=== PATIENT | female | born 1940 | race Caucasian/White ===

== ENCOUNTER → 2017-02-16 | Outpatient (CLI) | payer MEDICARE ==
--- NOTE | 2017-02-16 09:29 | FL ---
EXAMINATION TYPE: FL barium swallow DATE OF EXAM: 02/16/2017 CLINICAL HISTORY: Dysphasia, patient feels food getting stuck lower cervical spine at level of thyroi d. TECHNIQUE: A double contrast esophagram is performed utilizing air and barium. A total of 27 second s of fluoroscopic time was utilized during procedure. 37 spot images were saved during procedure COMPARISON: None FINDINGS: The esophagus shows normal motility and emptying into the stomach. No evidence of hiatal h ernia or stricture noted. No significant gastroesophageal reflux was seen during real time performanc e of this study. Incidental note is made of suspected small calcified nodules or granulomas in centra l aspect of both lungs. IMPRESSION: No significant abnormality is seen to account for patient's symptoms.
--- NOTE | 2017-02-18 07:42 | MM ---
Reason for exam: screening (asymptomatic). Last mammogram was performed 1 year ago. History: Patient is postmenopausal and is nulliparous. Family history of breast cancer in maternal aunt. Took estrogen for 10 years beginning at age 50. Took progesterone for 10 years beginning at age 50. Physical Findings: A clinical breast exam by your physician is recommended on an annual basis and results should be correlated with mammographic findings. MG 3D Screening Mammo W/Cad Bilateral CC and MLO view(s) were taken. Prior study comparison: February 03, 2016, bilateral MG 3d screening mammo w/cad. January 29, 2015, bilateral MG screening mammo w CAD. January 26, 2014, bilateral MG screening mammo w CAD. There are scattered fibroglandular densities. No significant changes when compared with prior studies. ASSESSMENT: Negative, BI-RAD 1 RECOMMENDATION: Routine screening mammogram of both breasts in 1 year.
== END | disposition home or self-care (01) ==
LOC: RADMAMWWP 08:20
PROVIDERS: ATTEND Family Medicine
DX: Z12.31 Encounter for screening mammogram for malignant neoplasm of breast (principal); R13.10 Dysphagia, unspecified
CPT/HCPCS: 74220; 77063; G0202

== ENCOUNTER → 2018-02-25 | Outpatient (CLI) | payer MEDICARE ==
--- NOTE | 2018-02-28 11:29 | MM ---
Reason for exam: screening (asymptomatic). Last mammogram was performed 1 year ago. History: Patient is postmenopausal and is nulliparous. Family history of breast cancer in maternal aunt. Took estrogen for 10 years beginning at age 50. Took progesterone for 10 years beginning at age 50. Physical Findings: A clinical breast exam by your physician is recommended on an annual basis and results should be correlated with mammographic findings. MG 3D Screening Mammo W/Cad Bilateral CC and MLO view(s) were taken. Prior study comparison: February 16, 2017, bilateral MG 3d screening mammo w/cad. February 03, 2016, bilateral MG 3d screening mammo w/cad. The breast tissue is heterogeneously dense. This may lower the sensitivity of mammography. There is no discrete abnormality. ASSESSMENT: Negative, BI-RAD 1 RECOMMENDATION: Routine screening mammogram of both breasts in 1 year.
== END ==
LOC: RADMAMWWP 07:33
PROVIDERS: ATTEND Family Medicine
DX: Z12.31 Encounter for screening mammogram for malignant neoplasm of breast (principal)
CPT/HCPCS: 77063; 77067

== ENCOUNTER → 2018-08-11 | Outpatient (CLI) | payer MEDICARE ==
[2018-08-11 10:54] LABS: Basophils # (A) 0.1 k/uL (0-0.2); Basophils % (A) 1 %; Eosinophils # (A) 0.3 k/uL (0-0.7); Eosinophils % (A) 3 %; HCT 45.4 % (34.0-46.0); HGB 14.4 gm/dL (11.4-16.0); Lymphocytes # (A) 1.7 k/uL (1.0-4.8); Lymphocytes % (A) 17 %; MCH 30.2 pg (25.0-35.0); MCHC 31.7 g/dL (31.0-37.0); MCV 95.1 fL (80.0-100.0); Mean Platelet Volume 7.1; Monocytes # (A) 0.9 k/uL (0-1.0); Monocytes % (A) 9 %; Neutrophils # (A) 6.7 k/uL (1.3-7.7); Neutrophils % (A) 68 %; Platelet Count 375 k/uL (150-450); RBC 4.77 m/uL (3.80-5.40); RDW 14.3 % (11.5-15.5); WBC 9.8 k/uL (3.8-10.6)
[2018-08-11 11:21] LABS: Amorphous Sediment,Urine Few /hpf; Appearance,Urine Cloudy (Clear); Bacteria,Urine Rare /hpf; Bilirubin,Urine Negative (Negative); Blood,Urine Negative (Negative); Color,Urine Yellow; Glucose,Urine (UA) Negative (Negative); Hyaline Casts,Urine 1 /lpf (0-2); Ketones,Urine Negative (Negative); Leukocyte Esterase,Urine Large (Negative); Mucus,Urine Moderate /hpf; Nitrite,Urine Negative (Negative); Protein,Urine Trace (Negative); RBC,Urine 1 /hpf (0-5); Specific Gravity,Urine 1.022 (1.001-1.035); Squamous Epithelial Cell,Urine 11 /hpf (0-4); Urobilinogen,Urine <2.0 mg/dL (<2.0); WBC,Urine 28 /hpf (0-5)
[2018-08-11 13:36] LABS: Erythrocyte Sedimentation Rate 26 mm/hr (0-20)
[2018-08-11 16:14] LABS: Thyroid Peroxidase Antibodies <28.0 U/mL (0.0-60.0)
[2018-08-11 16:18] LABS: Albumin 4.3 g/dL (3.80-4.90); Albumin/Globulin Ratio 1.59 (1.60-3.17); Anion Gap 5.2 mmol/L (4.00-12.00); C Reactive Protein 1.5 mg/dL (0.0-0.8); Calcium 9.6 mg/dL (8.7-10.3); Carbon Dioxide 28.8 mmol/L (21.6-31.8); Globulin 2.7 g/dL (1.6-3.3); Potassium 5.3 mmol/L (3.5-5.5); Total Bilirubin 0.5 mg/dL (0.3-1.2)
[2018-08-11 18:01] LABS: Protein, Total 6.8 g/dL (6.2-8.2)
[2018-08-12 11:09] LABS: Immunoglobulin M 94.6 mg/dL (40.0-280.0)
[2018-08-12 12:47] LABS: Albumin 3.58 g/dL (3.80-4.90); Gamma Globulin 1.16 g/dL (0.70-1.50)
== END | disposition home or self-care (01) ==
LOC: LABWHC1 09:55
PROVIDERS: ATTEND Allergy & Immunology
DX: L50.8 Other urticaria (principal)
CPT/HCPCS: 36415; 80053; 81001; 82784; 82785; 84165; 84443; 85025; 85652; 86140; 86160; 86162; 86334; 86376; 86800; 88184; 88185

== ENCOUNTER → 2018-09-02 | Outpatient (CLI) | payer MEDICARE ==
[2018-09-02 11:57] LABS: Appearance,Urine Clear (Clear); Bilirubin,Urine Negative (Negative); Blood,Urine Negative (Negative); Color,Urine Yellow; Glucose,Urine (UA) Negative (Negative); Ketones,Urine Negative (Negative); Leukocyte Esterase,Urine Moderate (Negative); Mucus,Urine Rare /hpf; Nitrite,Urine Negative (Negative); Protein,Urine Negative (Negative); Specific Gravity,Urine 1.018 (1.001-1.035); Squamous Epithelial Cell,Urine 1 /hpf (0-4); Urobilinogen,Urine <2.0 mg/dL (<2.0); WBC,Urine 14 /hpf (0-5)
[2018-09-02 19:43] LABS: Anti-DNA, DS unit <1.0 IU/mL; DNA Double-Stranded NEGATIVE (NEGATIVE); Gliadin AB IgA, Unit <0.2 U/mL
[2018-09-02 20:11] LABS: Albumin 4.4 g/dL (3.80-4.90); Albumin/Globulin Ratio 1.63 (1.60-3.17); Anion Gap 10.4 mmol/L (4.00-12.00); C Reactive Protein 0.7 mg/dL (0.0-0.8); Carbon Dioxide 27.6 mmol/L (21.6-31.8); Globulin 2.7 g/dL (1.6-3.3); Potassium 4.7 mmol/L (3.5-5.5); Total Bilirubin 0.6 mg/dL (0.3-1.2); Total Protein 7.1 g/dL (6.2-8.2)
[2018-09-02 20:23] LABS: Rheumatoid Factor 8 IU/mL (0-15)
[2018-09-02 20:26] LABS: Thyroid Peroxidase Antibodies 42.7 U/mL (0.0-60.0)
[2018-09-02 20:53] LABS: Hepatitis C IgG Antibody Non-Reactive (Non-Reactive)
[2018-09-05 13:35] LABS: Anti-Endomysial IgA Antibody <1:10 Titer (<1:10)
[2018-09-06 14:06] LABS: Alpha 1 Anti-Trypsin 124 mg/dL (90 - 200); Alpha-1-Antitrypsin Phenotype MS
== END | disposition home or self-care (01) ==
LOC: LABWHC1 09:41
PROVIDERS: ATTEND Allergy & Immunology
DX: D89.2 Hypergammaglobulinemia, unspecified (principal)
CPT/HCPCS: 36415; 80053; 81001; 82103; 82104; 82595; 82784; 82785; 83516; 83883; 84432; 84443; 85652; 86140; 86160; 86200; 86225; 86255; 86376; 86431; 86803; 87340; 88184; 88185

== ENCOUNTER → 2018-09-21 | Outpatient (CLI) | payer MEDICARE ==
--- NOTE | 2018-09-21 10:42 | MR ---
EXAMINATION TYPE: MR brain and iac wo/w con DATE OF EXAM: 09/21/2018 COMPARISON: None HISTORY: Hearing loss / Acoustic nerve disorder CONTRAST: Performed utilizing 7.5 mL intravenous Gadavist gadolinium contrast. TECHNIQUE: Multiplanar, multiecho imaging on a 3.0 Chasidy magnet is performed through the brain. Atte ntion is paid to the internal auditory canals with thin section imaging. Postcontrast imaging is per formed through the internal auditory canals. FINDINGS:Craniovertebral junction is normal. The pituitary is normal. Diffusion-weighted imaging is performed. No suspicious hyperintensity is present to suggest an acute intracranial infarct or acute ischemic area. Signal within the brain has mild areas of periventricular white matter hyperintensity on T2-weighted sequences likely related to microvascular ischemic change. Few scattered punctate areas are scattered through the bilateral centrum semiovale. Some perivascular atrophy may be present. Thin section imaging is performed through the internal auditory canals and cerebellar pontine angles. No cerebellar pontine angle masses are evident. The internal auditory canals appear normal without expansion or erosion. Postcontrast imaging was performed. No suspicious enhancement is evident within the internal audito ry canals or the included portions of the brain. IMPRESSIONS: 1. Normal internal auditory canals. No suspicious masses or expansion is evident. 2. Changes compatible with microvascular ischemic change through the brain with some age related atro phy.
== END ==
LOC: RADMRIMAIN 09:14
PROVIDERS: ATTEND Otolaryngology
DX: H93.3X9 Disorders of unspecified acoustic nerve (principal); H91.90 Unspecified hearing loss, unspecified ear; R42 Dizziness and giddiness
CPT/HCPCS: 70553; A9585

== ENCOUNTER → 2019-03-20 | Outpatient (CLI) | payer MEDICARE ==
--- NOTE | 2019-03-20 10:21 | MM ---
Reason for exam: screening (asymptomatic). Last mammogram was performed 1 year and 1 month ago. History: Patient is postmenopausal and is nulliparous. Family history of breast cancer in maternal aunt. Took estrogen for 10 years beginning at age 50. Took progesterone for 10 years beginning at age 50. Physical Findings: A clinical breast exam by your physician is recommended on an annual basis and results should be correlated with mammographic findings. MG 3D Screening Mammo W/Cad Bilateral CC and MLO view(s) were taken. Prior study comparison: February 25, 2018, bilateral MG 3d screening mammo w/cad. February 16, 2017, bilateral MG 3d screening mammo w/cad. The breast tissue is heterogeneously dense. This may lower the sensitivity of mammography. No suspicious abnormality. No significant changes when compared with prior studies. ASSESSMENT: Negative, BI-RAD 1 RECOMMENDATION: Routine screening mammogram of both breasts in 1 year.
== END | disposition home or self-care (01) ==
LOC: RADMAMWWP 08:04
PROVIDERS: ATTEND Family Medicine
DX: Z12.31 Encounter for screening mammogram for malignant neoplasm of breast (principal)
CPT/HCPCS: 77063; 77067

== ENCOUNTER → 2019-12-09 | Outpatient (CLI) | payer MEDICARE ==
--- NOTE | 2019-12-09 09:42 | CT ---
EXAMINATION TYPE: CT brain wo con DATE OF EXAM: 12/09/2019 COMPARISON: 09/21/2018 HISTORY: loss of balance, repeated falls, visual disturbance, headaches CT DLP: 883 mGycm Automated exposure control for dose reduction was used. FINDINGS: Moderate generalized degenerative changes seen in the appearance of faint periventricular low attenua tion typical remote microvascular ischemia. No midline shift or mass effect. Craniocervical junction is maintained. Partially empty sella turcica noted. Calvarium intact. No significant changes of sinusitis. Orbits symmetric. IMPRESSION: A DEGENERATIVE AND NONSPECIFIC WHITE MATTER CHANGES MOST TYPICAL OF REMOTE WHITE MATTER ISCHEMIA.
== END | disposition home or self-care (01) ==
LOC: RADCTMAIN 08:50
PROVIDERS: ATTEND Family Medicine
DX: I67.82 Cerebral ischemia (principal); R90.82 White matter disease, unspecified
CPT/HCPCS: 70450

== ENCOUNTER → 2019-12-12 | Outpatient (CLI) | payer MEDICARE ==
[2019-12-13 13:36] LABS: Cow's Milk IgE Class CLASS 0/1; Egg White IgE 0.71 kU/L (<0.10); Peanut IgE 0.23 kU/L (<0.10); Potato IgE <0.10 kU/L (<0.10); Potato IgE Class CLASS 0; Soybean IgE <0.10 kU/L (<0.10)
== END ==
LOC: LABWHC1 09:39
PROVIDERS: ATTEND Otolaryngology
DX: J30.89 Other allergic rhinitis (principal)
CPT/HCPCS: 36415; 86003

== ENCOUNTER 2020-02-25 20:32 | Observation (INO) | payer MEDICARE ==
[2020-02-25 21:36] LABS: Basophils # (A) 0.1 k/uL (0-0.2); Basophils % (A) 1 %; Eosinophils # (A) 0.5 k/uL (0-0.7); Eosinophils % (A) 4 %; HCT 39.8 % (34.0-46.0); HGB 13.2 gm/dL (11.4-16.0); Lymphocytes # (A) 2.4 k/uL (1.0-4.8); Lymphocytes % (A) 22 %; MCH 31.8 pg (25.0-35.0); MCHC 33.2 g/dL (31.0-37.0); MCV 95.7 fL (80.0-100.0); Mean Platelet Volume 7.6; Monocytes # (A) 0.7 k/uL (0-1.0); Monocytes % (A) 6 %; Neutrophils # (A) 7.3 k/uL (1.3-7.7); Neutrophils % (A) 66 %; Platelet Count 281 k/uL (150-450); RBC 4.16 m/uL (3.80-5.40); RDW 12.9 % (11.5-15.5); WBC 11.2 k/uL (3.8-10.6)
[2020-02-25 21:45] LABS: INR 0.9 (<1.2); Partial Thromboplastin Time 23.8 sec (22.0-30.0); Prothrombin Time 9.5 sec (9.0-12.0)
--- NOTE | 2020-02-25 21:48 | CT ---
EXAMINATION TYPE: CT brain tree wo con DATE OF EXAM: 02/25/2020 COMPARISON: CT brain 12/09/2019 HISTORY: fall Headache. Neck pain CT DLP: 1387.3 mGycm Automated exposure control for dose reduction was used. There is cerebral atrophy. There is no mass effect nor midline shift. There is no sign of intracrania l hemorrhage. There is some mild hypodensity around the frontal horns of the lateral ventricles. The calvarium is intact. There is no evidence of cerebral edema. Cervical vertebra have normal alignment. There is some narrowing at C4-5 and C5-6 disc spaces with sp urring of the endplates. The posterior elements are intact. There is mild hypertrophic changes in the facet joints. The skull base is intact. There is normal aeration of the mastoid sinuses. Occipital b one is intact. IMPRESSION: Cerebral atrophy. Mild chronic small vessel ischemia. No change. Mild spondylotic changes in the cervical spine. No fracture seen.
[2020-02-25 21:50] LABS: Albumin 3.9 g/dL (3.5-5.0); Calcium 9.9 mg/dL (8.4-10.2); Potassium 5.2 mmol/L (3.5-5.1); Total Bilirubin 0.3 mg/dL (0.2-1.3); Total Protein 6.9 g/dL (6.3-8.2)
--- NOTE | 2020-02-25 21:52 | XR ---
EXAMINATION TYPE: XR chest 2V DATE OF EXAM: 02/25/2020 COMPARISON: NONE HISTORY: Syncope TECHNIQUE: FINDINGS: Heart and mediastinum are normal. Lungs are clear. Diaphragm is normal. Bony thorax appears intact. IMPRESSION: Normal chest.
[2020-02-25] MEDS ORDERED: NALOXONE 0.4 MG/ML 1 ML VIAL IV PRN (21:54)
--- NOTE | 2020-02-25 21:56 | ED ---
Fall HPI - General Chief Complaint: Fall Stated Complaint: Fall, Hit Head Time Seen by Provider: 02/25/20 20:42 Source: patient Mode of arrival: ambulatory - History of Present Illness Initial Comments: 79yo females presenting for head injury after possible fall/syncopal episode. She states just prior to arrival she was stretching in her bed when her heard a thud. He went to the bedroom and she was in the floor patient had hit her head. Patient had repetitive questioning she was alert and conscious at the time. Patient states she believes she did lose consciousness and believes she possibly had a syncopal episode she does not recollect the events prior to falli ng. Patient denied any abnormal symptoms earlier in the day she states her blood pressure was lower than normal at 111/40 and she had started a new blood pressure medication. Patient denies any chest pain shortness of breath nausea vomiting leg swelling. Deep inspiration history DVT pulmonary embolism. Patient states she has a slight headache otherwise no symptoms at this time denies any neck pain low back pain abdominal pain. Patient denies any vomiting diarrhea. Patient denies any loss of sensation weakness of the lower extremities. Denies visual changes. Patient appears well and nontoxic in no acute distress at this time - Related Data Home Medications Medication Instructions Recorded Confirmed Simvastatin 20 mg PO HS 09/03/14 02/25/20 Acetaminophen/Diphenhydramine 1 tab PO HS PRN 02/25/20 02/25/20 [Tylenol PM 500-25mg] Ascorbic Acid [Vitamin C] 1,000 mg PO DAILY 02/25/20 02/25/20 Aspirin EC [Ecotrin Low Dose] 81 mg PO DAILY 02/25/20 02/25/20 Calcium Carbonate [Calcium] 600 mg PO DAILY 02/25/20 02/25/20 Dicyclomine [Bentyl] 10 mg PO DAILY 02/25/20 02/25/20 EPINEPHrine (Auto Inject) [Epipen] 0.3 mg IM ONCE PRN 02/25/20 02/25/20 Fish Oil(Unknown Dose) 1 cap PO DAILY 02/25/20 02/25/20 Magnesium Oxide [Mag-Ox] 400 mg PO HS 02/25/20 02/25/20 Penicillin V Potassium [Pen Vee K] 500 mg PO Q6H 02/25/20 02/25/20 Vitamin D3(Unknown Dose) 1 tab PO DAILY 02/25/20 02/25/20 Vitamin E 1,000 unit PO DAILY 02/25/20 02/25/20 l Acidophil/B Lactis/B Longum 460 mg PO DAILY 02/25/20 02/25/20 [Florajen3 Capsule] lisinopriL [Zestril] 5 mg PO HS 02/25/20 02/25/20 Allergies Allergy/AdvReac Type Severity Reaction Status Date / Time cheese Allergy Allergy Verified 02/25/20 22:20 Testing chocolate flavor Allergy Allergy Verified 02/25/20 22:20 Testing egg Allergy Allergy Verified 02/25/20 22:20 Testing milk Allergy Allergy Verified 02/25/20 22:20 Testing Milk Containing Products Allergy Allergy Verified 02/25/20 22:20 [Dairy] Testing tomato Allergy Allergy Verified 02/25/20 22:20 Testing NSAIDS (Non-Steroidal AdvReac can't have Verified 02/25/20 22:20 Anti-Inflamma r/t kidney disease Review of Systems ROS Statement: Those systems with pertinent positive or pertinent negative responses have been documented in the HPI. ROS Other: All systems not noted in ROS Statement are negative. Past Medical History Past Medical History: GERD/Reflux, Hyperlipidemia Additional Past Medical History / Comment(s): HEMMORHOIDS, CKD stage unknown stage. History of Any Multi-Drug Resistant Organisms: None Reported Past Surgical History: Cholecystectomy, Heart Catheterization, Hernia Repair Additional Past Surgical History / Comment(s): right hand cyst removal, Past Anesthesia/Blood Transfusion Reactions: No Reported Reaction Past Psychological History: No Psychological Hx Reported Smoking Status: Never smoker Past Alcohol Use History: None Reported Past Drug Use History: None Reported - Past Family History Sister(s) Family Medical History: Cancer Additional Family Medical History / Comment(s): COLON General Exam - General Exam Comments Initial Comments: General: The patient is awake and alert, in no distress Eye: +3 mm pupils are equal, round and reactive to light, extra-ocular movements are intact. No nystagmus. There is normal conjunctiva bilaterally. No signs of icterus. Ears, nose, mouth and throat: There are moist mucous membranes and no oral lesions. No raccoon or Parmar sign Neck: The neck is supple, there is no tenderness or JVD. No midline cerival pain. Cardiovascular: There is a regular rate and rhythm. No murmur, rub or gallop is appreciated. Respiratory: Lungs are clear to auscultation, respirations are non-labored, breath sounds are equal. No wheezes, stridor, rales, or rhonchi. Gastrointestinal: Soft, non-distended, non-tender abdomen without masses or organomegaly noted. There is no rebound or guarding present. Musculoskeletal: Normal ROM, no tenderness. Strength 5/5. Sensation intact. Radial pulses equal bilaterally 2+. Neurological: A&O x 3. CN II-XII intact, There are no obvious motor or sensory deficits. Coordination appears grossly intact. Speech is normal. No pronator d rift Skin: Skin is warm and dry and no rashes or lesions are noted. No LE edema. Psychiatric: Cooperative, appropriate mood & affect, normal judgment. Limitations: no limitations Course Vital Signs 02/25/20 02/25/20 02/25/20 20:34 21:25 21:45 Temperature 98 F 98.0 F Pulse Rate 54 L 63 Respiratory 18 17 Rate Blood Pressure 188/74 159/73 Blood Pressure 176/72 [Left Arm Sitting] Blood Pressure 147/70 [Left Arm Standing] Blood Pressure 182/71 [Left Arm Supine] O2 Sat by Pulse 97 97 Oximetry Medical Decision Making - Medical Decision Making Pt laboratory stable. EKG no arrhythmias or ischemic findings troponin negative. CT scan of the brain and C-spine no acute findings. Patient vital signs stable she appears well nontoxic no focal neurological deficits at this time. No repetitive questioning. I feel patient most likely has concussion. She is a greeable to further evaluation and admission secondary to possible syncopal episode. Discussed the case by attending provider who is agreeable to care plan and admission. he spoke with accepting admitting providers [email or web address] Saavedra. - Lab Data Result diagrams: 02/25/20 21:25 02/25/20 21:25 Lab Results 02/25/20 02/25/20 02/25/20 Range/Units 21:25 21:25 21:25 WBC 11.2 H (3.8-10.6) k/uL RBC 4.16 (3.80-5.40) m/uL Hgb 13.2 (11.4-16.0) gm/dL Hct 39.8 (34.0-46.0) % MCV 95.7 (80.0-100.0) fL MCH 31.8 (25.0-35.0) pg MCHC 33.2 (31.0-37.0) g/dL RDW 12.9 (11.5-15.5) % Plt Count 281 (150-450) k/uL Neutrophils % 66 % Lymphocytes % 22 % Monocytes % 6 % Eosinophils % 4 % Basophils % 1 % Neutrophils # 7.3 (1.3-7.7) k/uL Lymphocytes # 2.4 (1.0-4.8) k/uL Monocytes # 0.7 (0-1.0) k/uL Eosinophils # 0.5 (0-0.7) k/uL Basophils # 0.1 (0-0.2) k/uL PT 9.5 (9.0-12.0) sec INR 0.9 (<1.2) APTT 23.8 (22.0-30.0) sec Sodium 139 (137-145) mmol/L Potassium 5.2 H (3.5-5.1) mmol/L Chloride 106 (98-107) mmol/L Carbon Dioxide 29 (22-30) mmol/L Anion Gap 4 mmol/L BUN 17 (7-17) mg/dL Creatinine 1.11 H (0.52-1.04) mg/dL Est GFR (CKD-EPI)AfAm 55 (>60 ml/min/1.73 sqM) Est GFR (CKD-EPI)NonAf 48 (>60 ml/min/1.73 sqM) Glucose 105 H (74-99) mg/dL Calcium 9.9 (8.4-10.2) mg/dL Total Bilirubin 0.3 (0.2-1.3) mg/dL AST 37 H (14-36) U/L ALT 22 (4-34) U/L Alkaline Phosphatase 69 (38-126) U/L Troponin I (0.000-0.034) ng/mL Total Protein 6.9 (6.3-8.2) g/dL Albumin 3.9 (3.5-5.0) g/dL 02/25/20 Range/Units 21:25 WBC (3.8-10.6) k/uL RBC (3.80-5.40) m/uL Hgb (11.4-16.0) gm/dL Hct (34.0-46.0) % MCV (80.0-100.0) fL MCH (25.0-35.0) pg MCHC (31.0-37.0) g/dL RDW (11.5-15.5) % Plt Count (150-450) k/uL Neutrophils % % Lymphocytes % % Monocytes % % Eosinophils % % Basophils % % Neutrophils # (1.3-7.7) k/uL Lymphocytes # (1.0-4.8) k/uL Monocytes # (0-1.0) k/uL Eosinophils # (0-0.7) k/uL Basophils # (0-0.2) k/uL PT (9.0-12.0) sec INR (<1.2) APTT (22.0-30.0) sec Sodium (137-145) mmol/L Potassium (3.5-5.1) mmol/L Chloride (98-107) mmol/L Carbon Dioxide (22-30) mmol/L Anion Gap mmol/L BUN (7-17) mg/dL Creatinine (0.52-1.04) mg/dL Est GFR (CKD-EPI)AfAm (>60 ml/min/1.73 sqM) Est GFR (CKD-EPI)NonAf (>60 ml/min/1.73 sqM) Glucose (74-99) mg/dL Calcium (8.4-10.2) mg/dL Total Bilirubin (0.2-1.3) mg/dL AST (14-36) U/L ALT (4-34) U/L Alkaline Phosphatase (38-126) U/L Troponin I <0.012 (0.000-0.034) ng/mL Total Protein (6.3-8.2) g/dL Albumin (3.5-5.0) g/dL Disposition Clinical Impression: Fall, Head injury, Syncope, Orthostatic hypotension Disposition: ADMITTED IP TO THIS [facility] Condition: Stable Is patient prescribed a controlled substance at d/c from ED?: No Time of Disposition: 21:56 Decision to Admit Reason: Admit from EC Decision Date: 02/25/20 Decision Time: 21:56
[2020-02-25] MEDS ORDERED: ACETAMINOPHEN TAB 500 MG TAB PO PRN (23:03)
[2020-02-25] MEDS ORDERED: diphenhydrAMINE 25 MG CAP PO PRN (23:11)
[2020-02-25] MEDS: lisinopriL 5 MG TAB PO SCH (23:46)
[2020-02-25] MEDS: PENICILLIN V POTASSIUM 250 MG TAB PO SCH (23:47)
[2020-02-25] MEDS: ATORVASTATIN 10 MG TAB PO SCH (23:52)
[2020-02-25] MEDS: MAGNESIUM OXIDE 400 MG TAB PO SCH (23:52)
[2020-02-26] MEDS: PENICILLIN V POTASSIUM 250 MG TAB PO SCH ×3 (04:31→18:10)
[2020-02-26] MEDS ORDERED: VITAMIN E 1000 UNIT PO SCH (09:00)
[2020-02-26] MEDS ORDERED: NON FORMULARY DRUG (Vitamin D3(Unknown Dose) 1 TAB) PO SCH (09:00)
[2020-02-26] MEDS ORDERED: B LACTIS PO SCH (09:00)
[2020-02-26] MEDS ORDERED: FISH OIL PO SCH (09:00)
[2020-02-26] MEDS ORDERED: ACIDOPHIL PO SCH (09:00)
[2020-02-26] MEDS ORDERED: B LONGUM PO SCH (09:00)
[2020-02-26] MEDS: ASCORBIC ACID 500 MG TAB PO SCH (09:10)
[2020-02-26] MEDS: DICYCLOMINE 10 MG CAP PO SCH (09:10)
[2020-02-26] MEDS: ASPIRIN 81 MG PO SCH (09:10)
[2020-02-26] MEDS: CALCIUM CARBONATE 500 MG CHEWABLE PO SCH (09:10)
--- NOTE | 2020-02-26 10:09 | P.HPIM ---
History of Present Illness This is a pleasant 79 years old female with past medical history of hyperlipidemia, GERD, chronic kidney disease, chronic vertigo, sleep apnea. She is a patient of Dr. Loya. She follows up with Dr. 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 Parker for her ALLERGIES Presents because of syncope. She follows up with neurologist Dr. Peter however she has not seen him for a long time. Patient could not remember what happened and information was taken with the help of at bedside, patient developed a per patient and she was a ringlike exercises when she passed out, came to the room and she was already a week, she could not remember what happened, as per patient remains confused only for 10-20 seconds. Patient bumped the back of her head however she denies any weakness or numbness. No chest pain or dyspnea. No diarrhea or nausea vomiting. No dysuria or urinary symptoms Patient states that she has chronic vertigo on meclizine, she's been treated mainly by Dr. Loya, she saw Dr. Peter Long time ago. However she denies vertigo yesterday when she passed out. She denies smoking, alcohol or illicit drugs. Vitas looks stable however her orthostasis status was negative with a no drop of SBP above understanding, actually it went up to 132. She has mild leukocytosis of 11.2 and mild hyperkalemia at 5.2, creatinine is 1.1 which is close to her baseline. Troponin 1 is negative with less than 0.012. EKG showing sinus bradycardia with PAC at 59 bmp. QTC is 425. Chest x-ray: Normal chest. CT of the head and cervical spine: No acute process by radiologist Review of Systems CONSTITUTIONAL: No fever, no malaise, no fatigue. HEENT: No recent visual problems or hearing problems. Denied any sore throat. CARDIOVASCULAR: No orthopnea, PND, no palpitations, no syncope. PULMONARY: No shortness of breath, no cough, no hemoptysis. GASTROINTESTINAL: No diarrhea, no nausea, no vomiting, no abdominal pain. Normoactive bowel sounds. NEUROLOGICAL: No headaches, no weakness, no numbness. HEMATOLOGICAL: Denies any bleeding or petechiae. GENITOURINARY: Denies any burning micturition, frequency, or urgency. MUSCULOSKELETAL/RHEUMATOLOGICAL: Denies any joint pain, swelling, or any muscle pain. ENDOCRINE: Denies any polyuria or polydipsia. Past Medical History Past Medical History: GERD/Reflux, Hyperlipidemia Additional Past Medical History / Comment(s): HEMMORHOIDS, CKD stage unknown stage. History of Any Multi-Drug Resistant Organisms: None Reported Past Surgical History: Cholecystectomy, Heart Catheterization, Hernia Repair Additional Past Surgical History / Comment(s): right hand cyst removal, Past Anesthesia/Blood Transfusion Reactions: No Reported Reaction Past Psychological History: No Psychological Hx Reported Smoking Status: Never smoker Past Alcohol Use History: None Reported Past Drug Use History: None Reported - Past Family History Sister(s) Family Medical History: Cancer Additional Family Medical History / Comment(s): COLON Medications and Allergies Home Medications Medication Instructions Recorded Confirmed Type Simvastatin 20 mg PO HS 09/03/14 02/25/20 History Acetaminophen/Diphenhydramine 1 tab PO HS PRN 02/25/20 02/25/20 History [Tylenol PM 500-25mg] Ascorbic Acid [Vitamin C] 1,000 mg PO DAILY 02/25/20 02/25/20 History Aspirin EC [Ecotrin Low Dose] 81 mg PO DAILY 02/25/20 02/25/20 History Calcium Carbonate [Calcium] 600 mg PO DAILY 02/25/20 02/25/20 History Dicyclomine [Bentyl] 10 mg PO DAILY 02/25/20 02/25/20 History EPINEPHrine (Auto Inject) [Epipen] 0.3 mg IM ONCE PRN 02/25/20 02/25/20 History Fish Oil(Unknown Dose) 1 cap PO DAILY 02/25/20 02/25/20 History Magnesium Oxide [Mag-Ox] 400 mg PO HS 02/25/20 02/25/20 History Penicillin V Potassium [Pen Vee K] 500 mg PO Q6H 02/25/20 02/25/20 History Vitamin D3(Unknown Dose) 1 tab PO DAILY 02/25/20 02/25/20 History Vitamin E 1,000 unit PO DAILY 02/25/20 02/25/20 History l Acidophil/B Lactis/B Longum 460 mg PO DAILY 02/25/20 02/25/20 History [Florajen3 Capsule] lisinopriL [Zestril] 5 mg PO HS 02/25/20 02/25/20 History Allergies Allergy/AdvReac Type Severity Reaction Status Date / Time cheese Allergy Allergy Verified 02/25/20 22:20 Testing chocolate flavor Allergy Allergy Verified 02/25/20 22:20 Testing egg Allergy Allergy Verified 02/25/20 22:20 Testing milk Allergy Allergy Verified 02/25/20 22:20 Testing Milk Containing Products Allergy Allergy Verified 02/25/20 22:20 [Dairy] Testing tomato Allergy Allergy Verified 02/25/20 22:20 Testing NSAIDS (Non-Steroidal AdvReac can't have Verified 02/25/20 22:20 Anti-Inflamma r/t kidney disease Physical Exam Vitals: Vital Signs Temp Pulse Pulse Pulse Pulse Pulse Resp 02/26/20 08:57 97.9 F 66 62 61 18 02/26/20 02:25 97.7 F 65 02/25/20 22:38 98.0 F 62 18 02/25/20 22:37 98.0 F 59 L 02/25/20 21:45 98.0 F 63 17 02/25/20 21:25 02/25/20 20:34 98 F 54 L 18 BP BP BP BP Pulse Ox 02/26/20 08:57 118/60 132/73 107/57 02/26/20 02:25 154/76 99 02/25/20 22:38 199/78 97 02/25/20 22:37 178/81 100 02/25/20 21:45 159/73 97 02/25/20 21:25 176/72 147/70 182/71 02/25/20 20:34 188/74 97 Intake and Output 02/25/20 02/26/20 02/26/20 22:59 06:59 14:59 Intake Total 0 Output Total 825 Balance 0 -825 Intake: Oral 0 Output: Urine 825 Other: Voiding Method Toilet # Voids 2 Weight 74.843 kg GENERAL: The patient is alert and oriented x3, not in any acute distress. Well developed, well nourished. HEENT: Pupils are round and equally reacting to light. EOMI. No scleral icterus. No conjunctival pallor. Normocephalic, atraumatic. No pharyngeal erythema. No thyromegaly. CARDIOVASCULAR: S1 and S2 present. No murmurs, rubs, or gallops. PULMONARY: Chest is clear to auscultation, no wheezing or crackles. ABDOMEN: Soft, nontender, nondistended, normoactive bowel sounds. No palpable organomegaly. MUSCULOSKELETAL: No joint swelling or deformity. EXTREMITIES: No cyanosis, clubbing, or pedal edema. NEUROLOGICAL: Gross neurological examination did not reveal any focal deficits. SKIN: No rashes. No petechiae Results CBC & Chem 7: 02/25/20 21:25 02/25/20 21:25 Labs: Abnormal Lab Results - Last 24 Hours (Table) 02/25/20 02/25/20 Range/Units 21:25 21:25 WBC 11.2 H (3.8-10.6) k/uL Potassium 5.2 H (3.5-5.1) mmol/L Creatinine 1.11 H (0.52-1.04) mg/dL Glucose 105 H (74-99) mg/dL AST 37 H (14-36) U/L Thrombosis Risk Factor Assmnt - Choose All That Apply Each Risk Factor Represents 3 Points: Age 75 years or older Thrombosis Risk Factor Assessment Total Risk Factor Score: 3 Thrombosis Risk Factor Assessment Level: Moderate Risk Assessment and Plan Assessment: Syncope Head trauma secondary to above chronic vertigo Chronic kidney disease, stage III GERD Hyperlipidemia Plan: This is a pleasant 79 years old female who presents with syncope. We'll check TSH and cardiology consult. Check urine analysis. Also consult neurology service. We'll do neuro check for 24 hours Labs and medication were reviewed.. Continue same treatment. Continue with symptomatic treatment. Resume home medication. Monitor lytes and vitals. DVT and GI prophylaxis. Further recommendations depends on the clinical course of the patient DVT prophylaxis: Subcutaneous heparin GI Prophylaxis: Pepcid PT/OT: Pending Prognosis is guarded
--- NOTE | 2020-02-26 15:00 | CONS ---
CONSULTATION Mrs. Harmon is a 79-year-old female with known history of hypertension who has been followed by Dr. Chowdhury on a regular basis, who presented with a syncopal episode. She was doing exercise at home on her back and got up to switch to do her exercise on her belly. When she got up, she fell down and passed out for a very brief period of time for a few seconds according to her. She had no tonic-clonic activity, no loss of bladder control. She had no chest discomfort, palpitation, or dyspnea. She was alert but confused afterward but was able to move all her extremities and had no speech disturbance. She has prior history of orthostatic hypotension. She underwent a Holter monitor recently, revealed episodes of atrial tachycardia but no evidence of Eric tachycardia. She has a history of hyperlipidemia and hypertension. She is nondiabetic. She has underwent cardiac catheterization in 2013 and has no significant obstructive disease. She is not very active physically but has no significant change in her breathing. No exertional chest pain. No malignant arrhythmia. No PND, orthopnea, or peripheral edema. Her coronary risk factors are remarkable for hypertension and hyperlipidemia. She is nondiabetic, nonsmoker. MEDICATIONS: Include Zestril 5 mg daily, simvastatin 20 mg daily, aspirin 81 mg daily, calcium carbonate, fish oil, magnesium. REVIEW OF SYSTEMS: RESPIRATORY SYSTEM: She has no documented history of asthma, emphysema or bronchitis. GI SYSTEM: No recent GI bleeding, no peptic ulcer disease. SYSTEM: No dysuria, hematuria. NERVOUS SYSTEM: No history of stroke or seizure. PHYSICAL EXAMINATION: On presentation, her blood pressure was in the 180s. Subsequently, her blood pressure now supine is 107/57, standing 132/73. Heart rate in the 60s. HEAD: Normocephalic. EYES: Sclerae nonicteric. NECK: Good upstroke, no bruit, no jugular venous distention. LUNGS: Clear to auscultation. HEART: Regular rate and rhythm, S1, S2. No S3 with systolic murmur heard at the base, ejection type, no diastolic murmur,. no rub. ABDOMEN: Soft, nontender, positive bowel sounds, no organomegaly. EXTREMITIES: No edema, intact distal pulses. LAB DATA: Revealed BUN and creatinine of 17 and 1.1, potassium 5.2, hemoglobin 13.2. Troponin less than 0.012. TSH of 2.79. CT scan of the head shows no acute bleeding. The EKG reveals sinus mechanism with a rate of 59 with single PACs and nonspecific ST-T wave changes. Chest x-ray shows no evidence of infiltrate. IMPRESSION: 1. Syncopal episode, most likely orthostatic hypotension. There is no clear evidence to suggest malignant arrhythmia. Patient had orthostatic hypotension in the ER, her symptoms may have been aggravated by the fact that she was exercising. 2. History of hypertension. 3. History of hyperlipidemia. RECOMMENDATION: From the cardiac standpoint, I will obtain echocardiogram with Doppler. I do not believe we are dealing with malignant arrhythmia. She will continue present therapy, increase her level of activity, follow her on the telemetry. If she has no further evidence of symptoms, then I would expect she should be able to be discharged home tomorrow and depending on her progress, further recommendation will be made. Thank you for this consult. Will follow with you. JOSEPH / TONIE: [id number] /
--- NOTE | 2020-02-26 16:10 | P.CNNES ---
History of Present Illness Consult date: 02/26/20 Requesting physician: Ke E Charisma Reason for Consult: Syncope, history of vertigo History of Present Illness: Patient is a 79-year-old female came to the hospital yesterday at 8:30 PM for head injury after possible fall/syncopal episode. Patient states that she was laying on her back, feeling tired. She decided to do her leg exercises for which she has to lay on her stomach. She sat up on the edge of the bed, got up to turn around to lay on her stomach but was not able to do, and without any warning, while standing up, she fell on the side of the bed. Patient did pass out for short while. Her heard a loud crash and went in, saw she was laying on the floor. She was alert and conscious at that time. Patient believes she possibly had a syncopal spell as she does not recollect the events prior to falling. She was awake. She knew who she is, and who he was, and her birthday. However she couldn't recognize her own room, asking where she was. She was talking slow. She has been slurring for last several weeks. Patient hit her head. Her blood pressure was 111/40 and she had started a new blood pressure medication. Vital signs on arrival was blood pressure 188/74, pulse rate 54 and temperature 90.8. Patient's orthostatics was supine blood pressure 182/71, sitting 176/72 and standing up 147/70. Computed tomography scan of head from 02/25/2020 showed cerebral atrophy, mild chronic small vessel ischemia. Mild spondylotic changes in the cervical spine. No fracture. On my review, external auditory canals are clear. Visualized paranasal sinuses are clear. Chest x-ray normal, EKG shows sinus bradycardia with PACs. Patient had an MRI of the brain on 09/21/2018 performed for hearing loss/acoustic nerve disorder, which was normal internal auditory canals. No suspicious masses or extension is evident. Changes compatible with microvascular ischemic change with some age-related atrophy. Blood test shows WBC 11.2 hemoglobin 13.2 and platelets 21. PT/PTT normal. Potassium 5.0 normal sodium. Normal renal functions. Hepatic panel normal. Patient repeat orthostatics today was supine blood pressure 132/73, with pulse of 61. On sitting blood pressure 118/60 and pulse 66. On standing up, blood pressure 107/57, pulse 62. Patient tells me that she has very long-standing history of syncopal spells. Even when she was a teenager, age 14, she was very sensitive to being hungry, or hypoglycemia. Whenever she would, she would feel passing out. Patient remembers that in her teenage years, she has to have an orange juice at 10 AM and a small snack at recess otherwise she would feel lightheaded, dizzy and if she gets up, she would pass out. This has continued all her life, although lately has not been as symptomatic. Patient also has history of vertigo, also has history of balance issues for which she has fell due to losing balance several times in the last few years. Patient denies diabetes, has hypertension. Patient used to be on losartan, but was recently changed to lisinopril. Patient has problems with balance, cannot walk straight line for last couple years. Review of Systems As mentioned in HPI in detail. All other review of systems unremarkable. Denies any loss of vision, double vision, facial droop. She did have some slurring going on for a few weeks. Denies any chest pain shortness of breath wheezing or cough. Denies abdominal pain nausea vomiting or diarrhea. Past Medical History Past Medical History: GERD/Reflux, Hyperlipidemia Additional Past Medical History / Comment(s): HEMMORHOIDS, CKD stage unknown stage. History of Any Multi-Drug Resistant Organisms: None Reported Past Surgical History: Cholecystectomy, Heart Catheterization, Hernia Repair Additional Past Surgical History / Comment(s): right hand cyst removal, Past Anesthesia/Blood Transfusion Reactions: No Reported Reaction Past Psychological History: No Psychological Hx Reported Smoking Status: Never smoker Past Alcohol Use History: None Reported Past Drug Use History: None Reported - Past Family History Sister(s) Family Medical History: Cancer Additional Family Medical History / Comment(s): COLON Medications and Allergies Home Medications Medication Instructions Recorded Confirmed Type Simvastatin 20 mg PO HS 09/03/14 02/25/20 History Acetaminophen/Diphenhydramine 1 tab PO HS PRN 02/25/20 02/25/20 History [Tylenol PM 500-25mg] Ascorbic Acid [Vitamin C] 1,000 mg PO DAILY 02/25/20 02/25/20 History Aspirin EC [Ecotrin Low Dose] 81 mg PO DAILY 02/25/20 02/25/20 History Calcium Carbonate [Calcium] 600 mg PO DAILY 02/25/20 02/25/20 History Dicyclomine [Bentyl] 10 mg PO DAILY 02/25/20 02/25/20 History EPINEPHrine (Auto Inject) [Epipen] 0.3 mg IM ONCE PRN 02/25/20 02/25/20 History Fish Oil(Unknown Dose) 1 cap PO DAILY 02/25/20 02/25/20 History Magnesium Oxide [Mag-Ox] 400 mg PO HS 02/25/20 02/25/20 History Penicillin V Potassium [Pen Vee K] 500 mg PO Q6H 02/25/20 02/25/20 History Vitamin D3(Unknown Dose) 1 tab PO DAILY 02/25/20 02/25/20 History Vitamin E 1,000 unit PO DAILY 02/25/20 02/25/20 History l Acidophil/B Lactis/B Longum 460 mg PO DAILY 02/25/20 02/25/20 History [Florajen3 Capsule] lisinopriL [Zestril] 5 mg PO HS 02/25/20 02/25/20 History Allergies Allergy/AdvReac Type Severity Reaction Status Date / Time cheese Allergy Allergy Verified 02/25/20 22:20 Testing chocolate flavor Allergy Allergy Verified 02/25/20 22:20 Testing egg Allergy Allergy Verified 02/25/20 22:20 Testing milk Allergy Allergy Verified 02/25/20 22:20 Testing Milk Containing Products Allergy Allergy Verified 02/25/20 22:20 [Dairy] Testing tomato Allergy Allergy Verified 02/25/20 22:20 Testing NSAIDS (Non-Steroidal AdvReac can't have Verified 02/25/20 22:20 Anti-Inflamma r/t kidney disease Physical Examination - Vital Signs Vital Signs: Vital Signs Temp Pulse Pulse Pulse Pulse Pulse Resp 02/26/20 09:00 65 66 62 61 18 02/26/20 08:57 97.9 F 66 62 61 18 02/26/20 02:25 97.7 F 65 02/25/20 22:38 98.0 F 62 18 02/25/20 22:37 98.0 F 59 L 02/25/20 21:45 98.0 F 63 17 02/25/20 21:25 02/25/20 20:34 98 F 54 L 18 BP BP BP BP Pulse Ox 02/26/20 09:00 02/26/20 08:57 118/60 132/73 107/57 02/26/20 02:25 154/76 99 02/25/20 22:38 199/78 97 02/25/20 22:37 178/81 100 02/25/20 21:45 159/73 97 02/25/20 21:25 176/72 147/70 182/71 02/25/20 20:34 188/74 97 Intake and Output 02/25/20 02/26/20 02/26/20 22:59 06:59 14:59 Intake Total 0 240 Output Total 825 Balance 0 -825 240 Intake: Oral 0 240 Output: Urine 825 Other: Voiding Method Toilet Toilet # Voids 2 Weight 74.843 kg On examination patient is an elderly female, in no acute distress. Patient is alert and awake oriented to time place and person. Speech and language functions are normal. She has very mild dysarthria. No aphasia. Attention and concentration fund of knowledge is adequate. On cranial nerve examination pupils are round and reactive to light, visual dailey are full on confrontation extraocular muscles are intact with no nystagmus. Face is symmetric, tongue protrudes to the midline. Palatal elevation and sensation normal, hearing and shoulder shrug normal. On muscle strength testing there is no pronator drift and the strength is completely normal in the arms and legs distally and proximally. Reflexes are 1+ in the upper limbs, 2 in the lower limbs and plantars downgoing. No clonus. Sensory touch is equal with no neglect. Patient has mild tremors for [id number] testing bilaterally. Tone and bulk of muscles normal. Patient walks fairly steady, but does lose balance intermittently. On general examination, there is no carotid bruit, or murmur, S1 and S2 audible, peripheral pulses are present. Chest is clear, abdominal soft and nontender. Results - Laboratory Findings CBC and BMP: 02/25/20 21:25 02/25/20 21:25 Abnormal Lab Findings: Abnormal Labs 02/25/20 02/25/20 21:25 21:25 WBC 11.2 H Potassium 5.2 H Creatinine 1.11 H Glucose 105 H AST 37 H Assessment and Plan Assessment: * Syncopal spell, likely due to orthostasis. Patient has positive orthostatics noted on examination. * Balance disorder, probably multifactorial. Patient's history of previous vertigo, and underlying peripheral vascular dysfunction are likely causes. No clinical evidence of peripheral neuropathy or myelopathy. No clinical evidence of Parkinson's disease. * Hypertension * Previous long-standing history of recurrent near syncopal spells related to hypoglycemia/orthostasis. Plan: * Patient has positive orthostatics. Cardiology on board. Consider tilt table test. Consider midodrine. * We will check B12, folate * PT evaluate gait. Patient does have a regular cane, although may benefit from a 4 pronged cane or a walker.
[2020-02-26 17:22] LABS: Appearance,Urine Cloudy (Clear); Bacteria,Urine Rare /hpf; Bilirubin,Urine Negative (Negative); Blood,Urine Negative (Negative); Color,Urine Light Yellow; Glucose,Urine (UA) Negative (Negative); Ketones,Urine Negative (Negative); Leukocyte Esterase,Urine Large (Negative); Nitrite,Urine Negative (Negative); PH, Urine 7.5 (5.0-8.0); Protein,Urine Negative (Negative); RBC,Urine 5 /hpf (0-5); Specific Gravity,Urine 1.009 (1.001-1.035); Squamous Epithelial Cell,Urine <1 /hpf (0-4); Urobilinogen,Urine <2.0 mg/dL (<2.0); WBC,Urine 147 /hpf (0-5)
[2020-02-26] MEDS: lisinopriL 5 MG TAB PO SCH (19:53)
[2020-02-26] MEDS: HEPARIN SODIUM,PORCINE 5,000 UNIT/ML 1 ML VIAL SQ SCH (19:53)
[2020-02-26] MEDS: MAGNESIUM OXIDE 400 MG TAB PO SCH (19:53)
[2020-02-26] MEDS: ATORVASTATIN 10 MG TAB PO SCH (19:53)
[2020-02-26] MEDS ORDERED: FAMOTIDINE 20 MG/2 ML VIAL IV SCH (21:00)
[2020-02-27] MEDS: PENICILLIN V POTASSIUM 250 MG TAB PO SCH ×4 (00:19→18:11)
[2020-02-27 03:54] LABS: Folate, Serum >24.0 ng/mL
[2020-02-27 05:25] LABS: Basophils # (A) 0.1 k/uL (0-0.2); Basophils % (A) 1 %; Eosinophils # (A) 0.5 k/uL (0-0.7); Eosinophils % (A) 4 %; HCT 38.9 % (34.0-46.0); Lymphocytes # (A) 2.2 k/uL (1.0-4.8); Lymphocytes % (A) 17 %; MCHC 33.5 g/dL (31.0-37.0); MCV 95.6 fL (80.0-100.0); Mean Platelet Volume 7.4; Monocytes # (A) 0.6 k/uL (0-1.0); Monocytes % (A) 5 %; Neutrophils # (A) 9.5 k/uL (1.3-7.7); Neutrophils % (A) 73 %; Platelet Count 296 k/uL (150-450); RBC 4.07 m/uL (3.80-5.40); RDW 12.8 % (11.5-15.5); WBC 12.9 k/uL (3.8-10.6)
[2020-02-27 05:38] LABS: Calcium 8.9 mg/dL (8.4-10.2); Potassium 4.4 mmol/L (3.5-5.1)
[2020-02-27] MEDS: ASPIRIN 81 MG PO SCH (08:50)
[2020-02-27] MEDS: CALCIUM CARBONATE 500 MG CHEWABLE PO SCH (08:50)
[2020-02-27] MEDS: HEPARIN SODIUM,PORCINE 5,000 UNIT/ML 1 ML VIAL SQ SCH ×2 (08:51→20:23)
[2020-02-27] MEDS: ASCORBIC ACID 500 MG TAB PO SCH (08:51)
[2020-02-27] MEDS: DICYCLOMINE 10 MG CAP PO SCH (08:51)
[2020-02-27] MEDS: FAMOTIDINE 20 MG TAB PO SCH (08:51)
--- NOTE | 2020-02-27 09:30 | PN ---
PROGRESS NOTE Mrs. Harmon is a 79-year-old female with known history of hypertension who presented with syncopal episode that most likely represent orthostatic hypotension. She is feeling well today, ambulating without difficulty. Denying any chest pain. Denies any dizziness, palpitation. She denies any nausea. She continues to be in sinus mechanism. She is at this time maintained on aspirin once a day, Lipitor 10 mg daily and lisinopril 5 mg daily. PHYSICAL EXAMINATION: Blood pressure 120/60 with a heart rate in the 70s. LUNGS: Clear. HEART: Regular rate and rhythm, S1, S2. No S3. No rub. ABDOMEN: Soft, nontender. EXTREMITIES: No edema. LAB DATA: Revealed BUN and creatinine 12 and 0.94. Hemoglobin of 13. IMPRESSION: 1. Syncope. Presenting orthostatic hypotension. 2. History of hypertension. 3. History of hyperlipidemia. RECOMMENDATION: I will review views of her echo. If there is no evidence of significant abnormality, then I would expect she should be able to be discharged home today and follow up as an outpatient with Dr. Chowdhury. MMODL / IJN: [id number] /
--- NOTE | 2020-02-27 09:53 | ECHOF ---
Referral Reason:syncope MEASUREMENTS -------- HEIGHT: 157.5 cm WEIGHT: 74.8 kg BP: 118/60 RVIDd: 3.0 cm (< 3.3) IVSd: 1.0 cm (0.6 - 1.1) LVIDd: 4.3 cm (3.9 - 5.3) LVPWd: 1.0 cm (0.6 - 1.1) IVSs: 1.6 cm LVIDs: 3.0 cm LVPWs: 1.6 cm LA Diam: 3.5 cm (2.7 - 3.8) LAESV Index (A-L): 27.54 ml/m Ao Diam: 2.9 cm (2.0 - 3.7) AV Cusp: 2.0 cm (1.5 - 2.6) MV EXCURSION: 17.614 mm (> 18.000) MV EF SLOPE: 114 mm/s (70 - 150) EPSS: 0.2 cm MV E Kendall: 1.04 m/s MV DecT: 208 ms MV A Kendall: 0.77 m/s MV E/A Ratio: 1.35 AR PHT: 770 ms FINDINGS -------- Sinus rhythm. This was a technically good study. The left ventricular size is normal. Left ventricular wall thickness is normal. Overall left vent ricular systolic function is normal with, an EF between 55 - 60 %. The right ventricle is normal in size. Normal LA size by volume 22+/-6 ml/m2. The right atrial size is normal. Interatrial and interventricular septum intact. The aortic valve is trileaflet and appears structurally normal. There is mild aortic regurgitation. The mitral valve is normal. There is trace to mild mitral regurgitation. The tricuspid valve appears structurally normal. Mild tricuspid regurgitation present. Trace/mild (physiologic) pulmonic regurgitation. The aortic root size is normal. Normal inferior vena cava with normal inspiratory collapse consistent with estimated right atrial pre ssure of 5 mmHg. There is no pericardial effusion. CONCLUSIONS -------- 1. Left ventricular wall thickness is normal. 2. Overall left ventricular systolic function is normal with, an EF between 55 - 60 %. 3. Normal LA size by volume 22+/-6 ml/m2. 4. There is mild aortic regurgitation. 5. There is trace to mild mitral regurgitation. 6. Mild tricuspid regurgitation present. 7. Trace/mild (physiologic) pulmonic regurgitation. 8. There is no pericardial effusion. PHOTOGRAPHIC COLORIST: Desire Rojas RDCS
--- NOTE | 2020-02-27 10:58 | CDI ---
Documentation Clarification Form Date: 02/27/2020 10:40:26 AM From: Ju Portillo RN CCDS Admit Date: 02/27/2020 09:31:00 AM Patient Name: Elsi Harmon Visit Number: [id number] Discharge Date: ATTENTION: The Clinical Documentation Specialists (CDI) and [facility] Coding Staff appreciate your assistance in clarifying documentation. Please respond to the clarification below the line at the bottom and electronically sign. The CDI & [facility] Coding staff will review the response and follow-up if needed. Please note: Queries are made part of the Legal Health Record. If you have any questions, please contact the author of this message via ITS. Dr. Ke Zafar Concussion is documented in the ED Note 02/24. History/Risk Factors:79-year-old female presents to the ED after being found on the floor hitting her head. She had repetitive questioning and was alert and conscious at the time. Medical History: Gerd, HLD and CKD 3 Clinical indicators: 02/24 ED Note: The patient is awake and alert, in no distress. Neurological: A Ox3 CN II-XII intact, there are no obvious motor or sensory deficits. Coordination appears grossly intact. Speech is normal. No pronator drift. 02/24 Labs: Wbc 11.2, K 5.2 Cr 1.11, AST 37, UA Large Leukocyte Esterace Wbc 147 02/[address]: Cerebral atrophy. Mild chronic small vessel ischemia. Treatment: 02/25 Neuro Consult: No repetitive questioning. I feel patient most likely has concussion. In your professional opinion, please document the following regarding the concussion: Without loss of consciousness With loss of consciousness (specify length of loss of consciousness): 30 minutes or less Other condition (please specify) Unable to determine (Last Revision: February 2017) i think pt had concussion with loss of consciousness, unknown time MTDD
--- NOTE | 2020-02-27 12:40 | P.PN ---
Subjective This is a pleasant 79 years old female with past medical history of hyperlipidemia, GERD, chronic kidney disease, chronic vertigo, sleep apnea. She is a patient of Dr. Loya. She follows up with Dr. Mata and office employee Dr. French and Dr. Parker for her ALLERGIES Presents because of syncope. She follows up with neurologist Dr. Peter however she has not seen him for a long time. Patient could not remember what happened and information was taken with the help of at bedside, patient developed a per patient and she was a ringlike exercises when she passed out, came to the room and she was already a week, she could not remember what happened, as per patient remains confused only for 10-20 seconds. Patient bumped the back of her head however she denies any weakness or numbness. No chest pain or dyspnea. No diarrhea or nausea vomiting. No dysuria or urinary symptoms Patient states that she has chronic vertigo on meclizine, she's been treated mainly by Dr. Loya, she saw Dr. Peter Long time ago. However she denies vertigo yesterday when she passed out. She denies smoking, alcohol or illicit drugs. Vitas looks stable however her orthostasis status was negative with a no drop of SBP above understanding, actually it went up to 132. She has mild leukocytosis of 11.2 and mild hyperkalemia at 5.2, creatinine is 1.1 which is close to her baseline. Troponin 1 is negative with less than 0.012. EKG showing sinus bradycardia with PAC at 59 bmp. QTC is 425. Chest x-ray: Normal chest. CT of the head and cervical spine: No acute process by radiologist 02/27/2020 Patient has no dizziness today, however she reports having increased frequency of urination and dysuria today. Her WBC is 12.9 K today. Patient is afebrile. BMP is unremarkable she is afebrile. Repeat orthostasis is negative. Neurology and cardiology input is appreciated. They think patient syncopal is secondary to her orthostatic hypotension. PT/OT is requested Patient needs Review of Systems CONSTITUTIONAL: No fever, no malaise, no fatigue. HEENT: No recent visual problems or hearing problems. Denied any sore throat. CARDIOVASCULAR: No orthopnea, PND, no palpitations, no syncope. PULMONARY: No shortness of breath, no cough, no hemoptysis. GASTROINTESTINAL: No diarrhea, no nausea, no vomiting, no abdominal pain. Normoactive bowel sounds. NEUROLOGICAL: No headaches, no weakness, no numbness. HEMATOLOGICAL: Denies any bleeding or petechiae. Active Medications Generic Name Dose Route Start Last Admin Trade Name Freq PRN Reason Stop Dose Admin Acetaminophen 500 mg 02/25/20 23:03 02/25/20 23:46 Acetaminophen Tab 500 Mg Tab PO 500 mg HS PRN Administration Pain Ascorbic Acid 1,000 mg 02/26/20 09:00 02/27/20 08:51 Ascorbic Acid 500 Mg Tab PO 1,000 mg DAILY ROHAN Administration Aspirin 81 mg 02/26/20 09:00 02/27/20 08:50 Aspirin 81 Mg PO 81 mg DAILY ROHAN Administration Atorvastatin Calcium 10 mg 02/25/20 23:15 02/26/20 19:53 Atorvastatin 10 Mg Tab PO 10 mg HS ROHAN Administration Calcium Carbonate/Glycine 500 mg 02/26/20 09:00 02/27/20 08:50 Calcium Carbonate 500 Mg Chewable PO 500 mg DAILY ROHAN Administration Dicyclomine HCl 10 mg 02/26/20 09:00 02/27/20 08:51 Dicyclomine 10 Mg Cap PO 10 mg DAILY ROHAN Administration Diphenhydramine HCl 25 mg 02/25/20 23:11 Diphenhydramine 25 Mg Cap PO HS PRN SLEEP Famotidine 20 mg 02/27/20 09:00 02/27/20 08:51 Famotidine 20 Mg Tab PO 20 mg DAILY ROHAN Administration Heparin Sodium (Porcine) 5,000 unit 02/26/20 21:00 02/27/20 08:51 Heparin Sodium,Porcine 5,000 Unit/Ml 1 Ml Vial SQ 5,000 unit Q12HR ROHAN Administration Ceftriaxone Sodium 1 gm/ 50 mls @ 100 mls/hr 02/27/20 09:00 02/27/20 09:03 Sodium Chloride IVPB 100 mls/hr Q24HR ROHAN Administration Lisinopril 5 mg 02/25/20 21:00 02/26/20 19:53 Lisinopril 5 Mg Tab PO 5 mg HS ROHAN Administration Magnesium Oxide 400 mg 02/25/20 23:15 02/26/20 19:53 Magnesium Oxide 400 Mg Tab PO 400 mg HS ROHAN Administration Naloxone HCl 0.2 mg 02/25/20 21:54 Naloxone 0.4 Mg/Ml 1 Ml Vial IV Q2M PRN Opioid Reversal Penicillin V Potassium 500 mg 02/26/20 00:00 02/27/20 05:47 Penicillin V Potassium 250 Mg Tab PO 02/29/20 23:00 500 mg Q6HR ROHAN Administration Objective - Vital Signs Vital signs: Vital Signs Temp 98 F 02/27/20 08:33 Pulse 78 02/27/20 08:33 Resp 16 02/27/20 08:33 BP 120/63 02/27/20 08:33 Pulse Ox 97 02/27/20 08:33 Intake & Output 02/26/20 02/27/20 02/27/20 18:59 06:59 18:59 Intake Total 360 Output Total 4 Balance 356 Intake: Oral 360 Output: Urine/Stool Mix 4 Other: Voiding Method Toilet Toilet Toilet # Voids 4 1 # Bowel Movements 1 - Exam GENERAL: The patient is alert and oriented x3, not in any acute distress. Well developed, well nourished. HEENT: Pupils are round and equally reacting to light. EOMI. No scleral icterus. No conjunctival pallor. Normocephalic, atraumatic. No pharyngeal erythema. No thyromegaly. CARDIOVASCULAR: S1 and S2 present. No murmurs, rubs, or gallops. PULMONARY: Chest is clear to auscultation, no wheezing or crackles. ABDOMEN: Soft, nontender, nondistended, normoactive bowel sounds. No palpable organomegaly. MUSCULOSKELETAL: No joint swelling or deformity. EXTREMITIES: No cyanosis, clubbing, or pedal edema. NEUROLOGICAL: Gross neurological examination did not reveal any focal deficits. SKIN: No rashes. no petechiae. - Labs CBC & Chem 7: 02/27/20 05:15 02/27/20 05:15 Labs: Abnormal Lab Results - Last 24 Hours (Table) 02/26/20 02/27/20 Range/Units 16:50 05:15 WBC 12.9 H (3.8-10.6) k/uL Neutrophils # 9.5 H (1.3-7.7) k/uL Urine Appearance Cloudy H (Clear) Ur Leukocyte Esterase Large H (Negative) Urine WBC 147 H (0-5) /hpf Urine WBC Clumps Moderate H (None) /hpf Urine Bacteria Rare H (None) /hpf Assessment and Plan Assessment: fall with head concussion secondary to UTI, leading to transient loss of consciousness rather than syncope. orthostatic hypotension, mild and improved Head trauma secondary to above chronic vertigo Chronic kidney disease, stage III GERD Hyperlipidemia Plan: This is a pleasant 79 years old female who presents with syncope. patient spelled closely by cardiology and neurology.. stop neuro check after 24 hours with no change in her mental status. Continue with Rocephin, we talked to the lap and they going to run urine culture. Labs and medication were reviewed.. Continue same treatment. Continue with symptomatic treatment. Resume home medication. Monitor lytes and vitals. DVT and GI prophylaxis. Further recommendations depends on the clinical course of the patient DVT prophylaxis: Subcutaneous heparin GI Prophylaxis: Pepcid PT/OT: Pending Prognosis is guarded I discussed with the patient and she agrees to stay. I discussed with staff, including bedside nurse and egg caser patient needed to be in patient
--- NOTE | 2020-02-27 16:43 | P.PN ---
Subjective Progress Note Date: 02/27/20 patient was seen for a follow-up. Patient states she is doing better. No further syncopal or near syncopal spells. Patient was seen by therapist and quad cane has been provided. No new focal symptoms. Objective - Vital Signs Vital signs: Vital Signs Temp 97.6 F 02/27/20 15:00 Pulse 64 02/27/20 15:00 Resp 16 02/27/20 15:00 BP 113/70 02/27/20 15:00 Pulse Ox 96 02/27/20 15:00 Intake & Output 02/26/20 02/27/20 02/27/20 18:59 06:59 18:59 Intake Total 360 300 Output Total 4 Balance 356 300 Intake: Oral 360 300 Output: Urine/Stool Mix 4 Other: Voiding Method Toilet Toilet Toilet # Voids 4 1 2 # Bowel Movements 1 - Exam patient's mental status, speech and language functions are normal. Cranial nerves are normal. Muscle strength is normal. Mild tremors for [id number] bilaterally. - Labs CBC & Chem 7: 02/27/20 05:15 02/27/20 05:15 Labs: Abnormal Lab Results - Last 24 Hours (Table) 02/26/20 02/27/20 Range/Units 16:50 05:15 WBC 12.9 H (3.8-10.6) k/uL Neutrophils # 9.5 H (1.3-7.7) k/uL Urine Appearance Cloudy H (Clear) Ur Leukocyte Esterase Large H (Negative) Urine WBC 147 H (0-5) /hpf Urine WBC Clumps Moderate H (None) /hpf Urine Bacteria Rare H (None) /hpf Assessment and Plan Assessment: * Syncopal spell, likely due to orthostasis. Patient has positive orthostatics noted on examination. * Probable UTI. * Balance disorder, probably multifactorial. Patient's history of previous vertigo, and underlying peripheral vascular dysfunction are likely causes. No clinical evidence of peripheral neuropathy or myelopathy. No clinical evidenc e of Parkinson's disease. * Hypertension * Previous long-standing history of recurrent near syncopal spells related to hypoglycemia/orthostasis. Plan: * Patient has positive orthostatics. Patient has acute UTI. Patient currently on Rocephin. Cardiology on board. Consider tilt table test as outpatient, if patient continues to have near syncopal symptoms or syncope. * B12 859, folate >24. * 2-D echo showed normal left ventricular wall thickness, EF is 55-60%. Mild AR. * Continue aspirin 81 mg and Lipitor. * PT input appreciated, patient provided with a 4 pronged cane. * As there is no active neurological issue, we will sign off. Please call neurology if any other concerns.
[2020-02-27] MEDS: ATORVASTATIN 10 MG TAB PO SCH (20:23)
[2020-02-27] MEDS: lisinopriL 5 MG TAB PO SCH (20:24)
[2020-02-27] MEDS: MAGNESIUM OXIDE 400 MG TAB PO SCH (20:24)
[2020-02-28 07:54] LABS: Basophils # (A) 0.1 k/uL (0-0.2); Basophils % (A) 1 %; Eosinophils # (A) 0.4 k/uL (0-0.7); Eosinophils % (A) 4 %; HCT 42.2 % (34.0-46.0); HGB 13.2 gm/dL (11.4-16.0); Lymphocytes # (A) 2.3 k/uL (1.0-4.8); Lymphocytes % (A) 26 %; MCH 30.6 pg (25.0-35.0); MCHC 31.2 g/dL (31.0-37.0); MCV 98.2 fL (80.0-100.0); Mean Platelet Volume 7.4; Monocytes # (A) 0.5 k/uL (0-1.0); Monocytes % (A) 6 %; Neutrophils # (A) 5.5 k/uL (1.3-7.7); Neutrophils % (A) 62 %; Platelet Count 325 k/uL (150-450); RDW 13.2 % (11.5-15.5); WBC 8.8 k/uL (3.8-10.6)
[2020-02-28] MEDS: ASPIRIN 81 MG PO SCH (07:58)
[2020-02-28] MEDS: HEPARIN SODIUM,PORCINE 5,000 UNIT/ML 1 ML VIAL SQ SCH ×2 (07:58→20:04)
[2020-02-28] MEDS: DICYCLOMINE 10 MG CAP PO SCH (07:58)
[2020-02-28] MEDS: ASCORBIC ACID 500 MG TAB PO SCH (07:58)
[2020-02-28] MEDS: CALCIUM CARBONATE 500 MG CHEWABLE PO SCH (07:58)
[2020-02-28] MEDS: FAMOTIDINE 20 MG TAB PO SCH (07:58)
--- NOTE | 2020-02-28 10:25 | P.PN ---
Subjective Progress Note Date: 02/28/20 This is a 79-year-old female with documented history of hypertension who follows with Dr. Khan in the office. She presented to the hospital following a syncopal episode. She was seen in consultation by Dr. Abbott. Patient does have a known history of hyperlipidemia and hypertension, she also underwent a Holter monitor recently which revealed episodes of atrial tachycardia but no evidence of any bradycardia cardiac. She underwent a cardiac catheterization in 2012 which did not reveal any significantly obstructive disease. The patient's blood pressure this morning continue to run on the lower side, 98/60, 114/70, heart rate in the 60s, 96% on room air. All of the patient's antihypertensive medications have been discontinued by Dr. Abbott, Patient has been instructed to keep a record of her blood pressures at home, follow-up with Dr. Khan in the office, bringing the blood pressure log along with her at that time. Laboratory data, white blood cell count 8.8, hemoglobin 13.2, platelet count 325. Echocardiogram with Doppler study was performed which revealed an ejection fraction of 55-60%. Objective - Vital Signs Vital signs: Vital Signs Temp 98.0 F 02/28/20 07:54 Pulse 63 02/28/20 09:00 Resp 16 02/28/20 09:00 BP 114/71 02/28/20 07:54 Pulse Ox 96 02/28/20 07:54 Intake & Output 02/27/20 02/28/20 02/28/20 18:59 06:59 18:59 Intake Total 300 260 Balance 300 260 Intake: Oral 300 260 Other: Voiding Method Toilet Toilet Toilet # Voids 2 1 1 - Exam PHYSICAL EXAMINATION: GENERAL: 79-year-old female in no acute distress at the time of my examination HEENT: Head is atraumatic, normocephalic. Pupils equal, round. Sclera anicteric. Conjunctiva are clear. Mucous membranes of the mouth are moist. Neck is supple. There is no elevated jugular venous pressure. No carotid bruit is heard. HEART EXAMINATION: Heart S1, S2 normal. No murmur or gallop heard. CHEST EXAMINATION: Lungs are clear to auscultation and precussion. No chest wall tenderness is noted on palpation or with deep breathing. ABDOMEN: Soft, nontender. Bowel sounds are heard. No organomegaly noted. EXTREMITIES: 2+ peripheral pulses with no evidence of peripheral edema and no calf tenderness noted. NEUROLOGIC patient is awake, alert and oriented 3 . - Labs CBC & Chem 7: 02/28/20 07:27 02/27/20 05:15 Labs: Microbiology - Last 24 Hours (Table) 02/26/20 16:50 Urine Culture - Preliminary Urine,Voided Assessment and Plan Plan: Assessment and plan #1 syncope, likely secondary to orthostatic hypotension #2 history of hypertension #3 hyperlipidemia #4 recent Holter monitor which revealed atrial tachycardia Plan Echocardiogram with Doppler study revealed a normal left ventricular systolic function. Patient's blood pressure remain on the low side therefore her antihypertensives have been discontinued. From cardiology's perspective the patient may be able to be discharged home. We'll make her a follow-up appointment to see Dr. Chowdhury in the office within one week. She's also been advised to keep logs of her blood pressure on a twice-daily basis. DNP note has been reviewed, I agree with a documented findings and plan of care. Patient was seen and examined.
--- NOTE | 2020-02-28 11:57 | P.PN ---
Subjective This is a pleasant 79 years old female with past medical history of hyperlipidemia, GERD, chronic kidney disease, chronic vertigo, sleep apnea. She is a patient of Dr. Lyoa. She follows up with Dr. Mata and chairperson anesthesiology Dr. French and Dr. Parker for her ALLERGIES Presents because of syncope. She follows up with neurologist Dr. Peter however she has not seen him for a long time. Patient could not remember what happened and information was taken with the help of at bedside, patient developed a per patient and she was a ringlike exercises when she passed out, came to the room and she was already a week, she could not remember what happened, as per patient remains confused only for 10-20 seconds. Patient bumped the back of her head however she denies any weakness or numbness. No chest pain or dyspnea. No diarrhea or nausea vomiting. No dysuria or urinary symptoms Patient states that she has chronic vertigo on meclizine, she's been treated mainly by Dr. Loya, she saw Dr. Peter Long time ago. However she denies vertigo yesterday when she passed out. She denies smoking, alcohol or illicit drugs. Vitas looks stable however her orthostasis status was negative with a no drop of SBP above understanding, actually it went up to 132. She has mild leukocytosis of 11.2 and mild hyperkalemia at 5.2, creatinine is 1.1 which is close to her baseline. Troponin 1 is negative with less than 0.012. EKG showing sinus bradycardia with PAC at 59 bmp. QTC is 425. Chest x-ray: Normal chest. CT of the head and cervical spine: No acute process by radiologist 02/27/2020 Patient has no dizziness today, however she reports having increased frequency of urination and dysuria today. Her WBC is 12.9 K today. Patient is afebrile. BMP is unremarkable she is afebrile. Repeat orthostasis is negative. Neurology and cardiology input is appreciated. They think patient syncopal is secondary to her orthostatic hypotension. PT/OT is requested Patient needs 02/28/2020 Patient is clinically doing well, no more dizziness. No chest pain or dyspnea Patient is been treated for UTI with empiric antibiotics, urine culture is still pending Discussed with patient and at bedside and they agree with the plan Objective - Vital Signs Vital signs: Vital Signs Temp 98.0 F 02/28/20 07:54 Pulse 63 02/28/20 09:00 Resp 16 02/28/20 09:00 BP 114/71 02/28/20 07:54 Pulse Ox 96 02/28/20 07:54 Intake & Output 02/27/20 02/28/20 02/28/20 18:59 06:59 18:59 Intake Total 300 260 Balance 300 260 Intake: Oral 300 260 Other: Voiding Method Toilet Toilet Toilet # Voids 2 1 1 - Exam GENERAL: The patient is alert and oriented x3, not in any acute distress. Well developed, well nourished. HEENT: Pupils are round and equally reacting to light. EOMI. No scleral icterus. No conjunctival pallor. Normocephalic, atraumatic. No pharyngeal erythema. No th yromegaly. CARDIOVASCULAR: S1 and S2 present. No murmurs, rubs, or gallops. PULMONARY: Chest is clear to auscultation, no wheezing or crackles. ABDOMEN: Soft, nontender, nondistended, normoactive bowel sounds. No palpable organomegaly. MUSCULOSKELETAL: No joint swelling or deformity. EXTREMITIES: No cyanosis, clubbing, or pedal edema. NEUROLOGICAL: Gross neurological examination did not reveal any focal deficits. SKIN: No rashes. no petechiae. - Labs CBC & Chem 7: 02/28/20 07:27 02/27/20 05:15 Labs: Microbiology - Last 24 Hours (Table) 02/26/20 16:50 Urine Culture - Preliminary Urine,Voided Assessment and Plan Assessment: fall with head concussion secondary to UTI, leading to transient loss of consciousness rather than syncope. orthostatic hypotension, mild and improved Head trauma secondary to above chronic vertigo Chronic kidney disease, stage III GERD Hyperlipidemia Plan: This is a pleasant 79 years old female who presents with syncope. patient spelled closely by cardiology and neurology.. stop neuro check after 24 hours with no change in her mental status. Continue with Rocephin, we talked to the lap and they going to run urine culture. Labs and medication were reviewed.. Continue same treatment. Continue with sy mptomatic treatment. Resume home medication. Monitor lytes and vitals. DVT and GI prophylaxis. Further recommendations depends on the clinical course of the patient DVT prophylaxis: Subcutaneous heparin GI Prophylaxis: Pepcid PT/OT: Pending Prognosis is guarded I discussed with the patient and she agrees to stay. I discussed with staff, including bedside nurse and transplant case manager patient needed to be in patient
[2020-02-28] MEDS: ATORVASTATIN 10 MG TAB PO SCH (20:04)
[2020-02-28] MEDS: MAGNESIUM OXIDE 400 MG TAB PO SCH (20:04)
[2020-02-29] MEDS: CALCIUM CARBONATE 500 MG CHEWABLE PO SCH (07:29)
[2020-02-29] MEDS: HEPARIN SODIUM,PORCINE 5,000 UNIT/ML 1 ML VIAL SQ SCH (07:29)
[2020-02-29] MEDS: FAMOTIDINE 20 MG TAB PO SCH (07:29)
[2020-02-29] MEDS: ASPIRIN 81 MG PO SCH (07:29)
[2020-02-29] MEDS: DICYCLOMINE 10 MG CAP PO SCH (07:29)
[2020-02-29] MEDS: ASCORBIC ACID 500 MG TAB PO SCH (07:29)
[2020-02-29 08:00] VITALS: BP 128/70; PULSE 64; RESP 16; TEMP 97.8
[2020-02-29 09:18] LABS: Basophils # (A) 0.1 k/uL (0-0.2); Basophils % (A) 1 %; Eosinophils # (A) 0.3 k/uL (0-0.7); Eosinophils % (A) 4 %; HCT 42.4 % (34.0-46.0); HGB 13.7 gm/dL (11.4-16.0); Lymphocytes # (A) 2.1 k/uL (1.0-4.8); Lymphocytes % (A) 27 %; MCH 31.3 pg (25.0-35.0); MCHC 32.3 g/dL (31.0-37.0); Mean Platelet Volume 7.5; Monocytes # (A) 0.4 k/uL (0-1.0); Monocytes % (A) 5 %; Neutrophils # (A) 4.8 k/uL (1.3-7.7); Neutrophils % (A) 62 %; Platelet Count 314 k/uL (150-450); RBC 4.37 m/uL (3.80-5.40); RDW 12.7 % (11.5-15.5); WBC 7.8 k/uL (3.8-10.6)
--- NOTE | 2020-03-03 05:38 | DS ---
DISCHARGE SUMMARY DATE OF ADMISSION: 02/27/2020 DATE OF DISCHARGE: 02/29/2020 FINAL DIAGNOSIS: 1. Syncope from high blood pressure. 2. Essential hypertension, uncontrolled. 3. Chronic vertigo. 4. Gastroesophageal reflux disease. 5. Hyperlipidemia. 6. Internal hemorrhoids. 7. Acute urinary tract infection with cystitis from E coli. HOSPITAL COURSE: This patient presented with an episode of passing out. Mildly orthostatic. Blood pressure medications were adjusted. 2D echocardiogram showed EF to be 55-[address] scan of the head and cervical spine showed some chronic changes. The patient was seen by Dr. Krishnamurthy from Neurology. He suggested a possible tilt-table test as an outpatient. Also seen by Dr. Abbott from Cardiology. The patient's creatinine is 0.94. The patient also was treated for UTI with cultures positive for E coli. Patient has history of intermittent vertigo and has follow with Dr. Peter in the past. PHYSICAL EXAMINATION: Temperature 97.8, pulse 64, respiration 16, blood pressure 128/70, pulse ox 99% on room air. Lungs are clear. Cardiovascular first and second sounds normal. INVESTIGATIONS: White count 7.8, hemoglobin 13.7. Urine culture positive for E coli. 2D echo as above. CT scan of the head and cervical spine negative. DISCHARGE MEDICATIONS: Zocor 20 mg q.h.s., Tylenol p.m. 1 tablet at bedtime p.r.n., Vitamin C 1000 mg p.o. daily, aspirin 81 mg p.o. daily, Calcium 600 mg p.o. daily, Bentyl 10 mg p.o. daily, EpiPen 0.3 mg p.r.n.,Fish oil 1 capsule p.o. daily, magnesium oxide 400 mg p.o. q.h.s., vitamin D3 one tablet p.o. daily, penicillin V 500 mg q.6 complete course, Florajen capsule 460 mg daily, Zestril 5 mg q.h.s. FOLLOW UP: Follow up with Dr. Chowdhury on 03/15/2020, follow up with Dr. Loya in 2 days. Follow up with Dr. Peter in 2 weeks. MMODL / IJN: [id number] /
--- NOTE | 2020-03-05 09:17 | CDI ---
Documentation Clarification Form Date: 03/05/20 From: Mervat Cotton Phone: If you have a question about this query, please contact Mariana Chilel Commonwealth Attorney at [phone] between 8am and 5pm. Admit Date: 02/25/20 Discharge Date:02/29/20 Patient Name: Elsi Harmon Visit Number: [id number] ATTENTION: The Clinical Documentation Specialists (CDI) and [facility] Coding Staff appreciate your assistance in clarifying documentation. Please respond to the clarification below the line at the bottom and electronically sign. The CDI & [facility] Coding staff will review the response and follow-up if needed. Please note: Queries are made part of the Legal Health Record. If you have any questions, please contact the author of this message via ITS. Dear Dr. Dodd The patient presented with the following: Syncope and fall Addendum to H&P states: on admission patient has hypertensive urgency and at that time she was positive for orthostatic hypotension however it was checked later and was negative. Her blood pressure is better controlled currently." Dr. Zafar documented that cardiology and neurology think patient syncope is secondary to her orthostatic hypotension in his progress notes He also documented orthostatic hypotension in his assessment in the progress notes. Neurology and Cardiology documented orthostatic hypotension. You documented syncope from high blood pressure and essential hypertension, uncontrolled in the discharge summary. History/Risk Factors: Hypertension, UTI, chronic vertigo Clinical Indicators: Syncope and fall Vital Signs: BP on 02/24 - 188/74, 159/73, 199/78, left arm supine - 182/71, 178/81; left arm sitting - 176/72; left arm standing - 147/70. BP on 02/25 left arm - 129/66, 154/85; left arm supine - 154/76, 132/73; left arm sitting - 118/60; left arm standing - 107/57 BP on 02/27 left arm; 98/62, 114/71, 105/65, 113/71, 134/86, 128/70 Treatment: IV Ceftriaxone, antihypertensive medications discontinued by cardiology, patient instructed to keep a record of BP at home In your professional opinion, can you please clarify the uncontrolled essential hypertension? Hypertensive urgency Hypertensive emergency Hypertensive crisis Orthostatic hypotension Other, please specify Unable to determine Hypertensive urgency MTDD
== END 2020-02-29 15:13 | disposition home or self-care (01) ==
LOC: EC 20:32 → 3NCARDOBS 22:00 → INTOOBSV 02-27 09:31 → OBSVTOIN 02-27 09:31 → UNDODISIN 02-29 15:13
PROVIDERS: ADMIT Hospitalist; ATTEND Hospitalist
DX: I16.0 Hypertensive urgency (principal); N30.00 Acute cystitis without hematuria; I95.1 Orthostatic hypotension; B96.20 Unspecified Escherichia coli [E. coli] as the cause of diseases classified elsewhere; K21.9 Gastro-esophageal reflux disease without esophagitis; S06.0X9A Concussion with loss of consciousness of unspecified duration, initial encounter; E78.5 Hyperlipidemia, unspecified; W19.XXXA Unspecified fall, initial encounter; G47.30 Sleep apnea, unspecified; E87.5 Hyperkalemia; R42 Dizziness and giddiness; R00.1 Bradycardia, unspecified; R55 Syncope and collapse; E16.2 Hypoglycemia, unspecified; K64.8 Other hemorrhoids; I12.9 Hypertensive chronic kidney disease with stage 1 through stage 4 chronic kidney disease, or unspecified chronic kidney disease; N18.30 Chronic kidney disease, stage 3 unspecified; Z90.49 Acquired absence of other specified parts of digestive tract; Z98.890 Other specified postprocedural states; Z80.0 Family history of malignant neoplasm of digestive organs; Z79.82 Long term (current) use of aspirin; Z79.899 Other long term (current) drug therapy; Z88.6 Allergy status to analgesic agent; Z91.012 Allergy to eggs; Z91.011 Allergy to milk products; Z91.018 Allergy to other foods
CPT/HCPCS: 96365; 96372 ×4; 99285; 36415; 93005; 93306; 97161; 97166; 80053; 80048; 84443; 82607; 82746; 84484; 85025 ×4; 85610; 85730; 81001; 87086; 87077; 87186; 71046; 72125; 70450; G0378 ×5; J1644 ×4; J0696 ×3

== ENCOUNTER 2020-04-15 09:11 | Day surgery (SDC) | payer MEDICARE ==
[2020-04-09 11:33] VITALS: BMI 30.2
[~2020-04-15 09:11] MED LIST: SODIUM CHLORIDE 0.9% 1,000 ML IV SCH
[2020-04-15 09:39] VITALS: RESP 18; TEMP 97.7
[2020-04-15] MEDS ORDERED: MIDAZOLAM 2 MG/2 ML VIAL IVP ONE (10:38)
[2020-04-15] MEDS ORDERED: LIDOCAINE 1% INJ 10MG/ML (20 ML MDV) SQ ONE (10:38)
--- NOTE | 2020-04-15 10:55 | P.EPPROC ---
- EP Procedure Note Electrophysiology Procedure Note: Loop monitor implant Primary physicians: Dr. Loya [employer] Specialist: Dr. Chowdhury Indication: Recurrent syncope, history of atrial tachycardia, paroxysmal Patient was brought to the EP lab in a fasting state. Written informed consent was obtained prior to the procedure. The left pectoral area was prepped and draped per protocol. Intravenous antibiotic was administered preoperatively. A subcutaneous Loop monitor was implanted successfully and the wound was closed per protocol. The device was programmed to detect significant darío- arrhythmic and tachy-arrhythmic events, per protocol. Device and programming details: Syncope protocol, atrial tachycardia and atrial fibrillation protocol Patient underwent EP procedure under conscious sedation/moderate sedation, monitoring of the level of consciousness and physiologic parameters including but not limited to vital signs and oxygenation. Patient tolerated the procedure well without any acute complications. Start time: 1038 Stop time: 2587
--- NOTE | 2020-04-15 10:56 | P.PRLE ---
RE: Elsi Harmon E Dear Dr. Shalini Calzada underwent implantation of loop monitor for evaluation and management of syncope. She does have a past history of paroxysmal atrial tachycardia I will keep you updated with any new information Thank you for entrusting me with the care of the patient Warm regards Sincerely Derrick Chowdhury
[2020-04-15 11:29] VITALS: BP 185/80; PULSE 82
== END 2020-04-15 11:30 | disposition home or self-care (01) ==
LOC: CATHEP 09:11
PROVIDERS: ATTEND Internal Medicine Clinical Cardiac Electrophysiology
DX: R55 Syncope and collapse (principal); R42 Dizziness and giddiness; I47.1 Supraventricular tachycardia; I95.1 Orthostatic hypotension; I12.9 Hypertensive chronic kidney disease with stage 1 through stage 4 chronic kidney disease, or unspecified chronic kidney disease; N18.30 Chronic kidney disease, stage 3 unspecified; I34.1 Nonrheumatic mitral (valve) prolapse; E78.5 Hyperlipidemia, unspecified; I65.29 Occlusion and stenosis of unspecified carotid artery; I34.0 Nonrheumatic mitral (valve) insufficiency; I25.10 Atherosclerotic heart disease of native coronary artery without angina pectoris; Z87.440 Personal history of urinary (tract) infections; Z79.82 Long term (current) use of aspirin; Z79.899 Other long term (current) drug therapy
CPT/HCPCS: 33285; C1764; J2250; J0690; J2001

== ENCOUNTER → 2020-05-28 | Outpatient (CLI) | payer MEDICARE ==
--- NOTE | 2020-05-29 13:36 | MM ---
Reason for exam: screening (asymptomatic). Last mammogram was performed 1 year and 2 months ago. History: Patient is postmenopausal and is nulliparous. Family history of breast cancer in maternal aunt. Took estrogen for 10 years beginning at age 50. Took progesterone for 10 years beginning at age 50. Physical Findings: A clinical breast exam by your physician is recommended on an annual basis and results should be correlated with mammographic findings. MG 3D Screening Mammo W/Cad Bilateral CC and MLO view(s) were taken. Prior study comparison: March 20, 2019, bilateral MG 3d screening mammo w/cad. February 25, 2018, bilateral MG 3d screening mammo w/cad. There are scattered fibroglandular densities. There are benign appearing vascular calcifications bilaterally. There is no discrete abnormality. ASSESSMENT: Benign, BI-RAD 2 RECOMMENDATION: Routine screening mammogram of both breasts in 1 year.
== END | disposition home or self-care (01) ==
LOC: RADMAMWWP 09:39
PROVIDERS: ATTEND Family Medicine
DX: Z12.31 Encounter for screening mammogram for malignant neoplasm of breast (principal)
CPT/HCPCS: 77063; 77067

== ENCOUNTER → 2020-09-04 | Outpatient (CLI) | payer MEDICARE ==
--- NOTE | 2020-09-04 12:26 | MR ---
EXAMINATION TYPE: MR brain wo con DATE OF EXAM: 09/04/2020 12:19 PM COMPARISON: NONE HISTORY: Parkinson's f/u, dizziness FINDINGS: The ventricles, basal cisterns and sulci overlying the cerebral convexities are moderately enlarged. There is evidence of mild to moderate periventricular white matter ischemic demyelination. Remote deep white matter insults are also noted. No acute edema is seen on diffusion weighted imaging. There is no evidence for midline shift or mass effect. Acute intracranial hemorrhage or extra-axial collection is not evident. The paranasal sinuses and mastoid air cells are well-aerated. IMPRESSION: Age-related atrophic and chronic small vessel ischemic change. No acute intracranial process at this time.
== END | disposition home or self-care (01) ==
LOC: RADMRIMAIN 11:36
PROVIDERS: ATTEND Psychiatry & Neurology Neurology
DX: I67.82 Cerebral ischemia (principal); G31.9 Degenerative disease of nervous system, unspecified; G20 Parkinson's disease
CPT/HCPCS: 70551

== ENCOUNTER → 2021-06-24 | Outpatient (CLI) | payer MEDICARE ==
--- NOTE | 2021-06-25 09:04 | MM ---
Reason for exam: screening (asymptomatic). Last mammogram was performed 1 year and 1 month ago. History: Patient is postmenopausal and is nulliparous. Took estrogen for 10 years beginning at age 50. Took progesterone for 10 years beginning at age 50. Physical Findings: A clinical breast exam by your physician is recommended on an annual basis and results should be correlated with mammographic findings. MG 3D Screening Mammo W/Cad Bilateral CC and MLO view(s) were taken. Prior study comparison: May 28, 2020, bilateral MG 3d screening mammo w/cad. March 20, 2019, bilateral MG 3d screening mammo w/cad. The breast tissue is heterogeneously dense. This may lower the sensitivity of mammography. There is no discrete abnormality. No significant changes when compared with prior studies. ASSESSMENT: Negative, BI-RAD 1 RECOMMENDATION: Routine screening mammogram of both breasts in 1 year.
== END | disposition home or self-care (01) ==
LOC: RADMAMWWP 09:15
PROVIDERS: ATTEND Family Medicine
DX: Z12.31 Encounter for screening mammogram for malignant neoplasm of breast (principal); Z78.0 Asymptomatic menopausal state
CPT/HCPCS: 77063; 77067

== ENCOUNTER 2021-08-14 08:02 | Day surgery (SDC) | payer MEDICARE ==
[2021-08-13 12:21] VITALS: BMI 30.4
[2021-08-14] MEDS ORDERED: LACTATED RINGERS 1,000 ML IV ONE (08:25)
[2021-08-14 08:36] VITALS: RESP 16; TEMP 96.6
[2021-08-14] MEDS ORDERED: fentaNYL (PF) 50 MCG/ML 2 ML AMP ONE (08:50)
[2021-08-14] MEDS ORDERED: MIDAZOLAM 2 MG/2 ML VIAL ONE (08:50)
--- NOTE | 2021-08-14 09:05 | P.PCN ---
Date of Procedure: 08/14/21 Description of Procedure: Procedure: Lumbar Puncture . Preoperative Diagnoses: Normal pressure hydrocephalus Postoperative Diagnosis: Same Anesthesia: IV sedation fentanyl and Versed Condition: stable. Complications: none. Description of the procedure: Patient was consented in the preoperative area we discussed the risks benefits and alternatives to the procedure. The patient was Brought into the procedure room and she was placed in the seated position. The back was cleansed with Chl oraPrep, the iliac crests were palpated bilaterally, spinous processes were felt in the midline. At that point lidocaine 1% was used to anesthetize the skin, total of 5 mL was used. A 22 gauge spinal needle was advanced until spinal fluid was aspirated through the needle and a three - way stop cock. No opening pressure was required for the procedure. CSF was obtained and sent off to laboratory for examination. 30 mL of CSF were requested to be drained. 30 mL were drained slowly with constant communication with the patient. Band-Aid was placed after the procedure the patient was instructed to lay flat for the next few hours. The patient was discharged from the PACU in stable condition.
[2021-08-14] MEDS ORDERED: IV FLUID CONTINUATION 1,000 ML IV ONE (09:08)
[2021-08-14] MEDS ORDERED: hydrALAZINE HCL 20 MG/ML 1 ML VIAL ONE (09:36)
[2021-08-14] MEDS ORDERED: hydrALAZINE HCL 20 MG/ML 1 ML VIAL IV ONE (09:39)
[2021-08-14 11:01] LABS: Glucose,CSF 53 mg/dL (40-70); Total Protein,CSF 72 mg/dL (12-60)
[2021-08-14 11:27] LABS: Appearance,CSF Clear; CSF Tube Number 2; Nucleated Cells, CSF 0 u/L (0-5); Red Blood Cell,CSF 0 u/L (0-10)
[2021-08-15 13:33] VITALS: BP 209/85; PULSE 65
== END 2021-08-14 10:22 | disposition home or self-care (01) ==
LOC: ORPAIN 08:02
PROVIDERS: ATTEND Hospitalist
DX: G91.2 (Idiopathic) normal pressure hydrocephalus (principal)
CPT/HCPCS: 88108; 84157; 82945; 89050; 62270; J2250; J0360; J3010

== ENCOUNTER → 2022-10-29 | Outpatient (CLI) | payer MEDICARE ==
--- NOTE | 2022-10-29 13:00 | FL ---
ESOPHOGRAM. HISTORY: Dysphagia Esophagram was performed per the single contrast technique. Patient was supine on the fluoroscopy tab le with limited imaging given the suboptimal positioning. The patient swallowed barium without difficulty or delay. Esophageal peristalsis and motility appear to be within normal limits. There is no evidence for filling defect, mass or diverticulum. No hiatal hernia seen. Subsequently single contrast cervical esophagram was performed which fails demonstrate evidence for a spiration penetration or mass. IMPRESSION: Unremarkable study.
== END | disposition home or self-care (01) ==
LOC: RADUSWWP 10:58
PROVIDERS: ATTEND Otolaryngology
DX: R13.12 Dysphagia, oropharyngeal phase (principal)
CPT/HCPCS: 74220

== ENCOUNTER → 2022-11-05 | Outpatient (CLI) | payer MEDICARE ==
--- NOTE | 2022-11-05 18:00 | FL ---
MODIFIED SWALLOW / DEGLUTITION STUDY EXAMINATION TYPE: FL barium swallow w video DATE OF EXAM: 11/05/2022 CLINICAL HISTORY: 82-year-old female with Parkinson's disease, food sticking in the throat. TECHNIQUE: Deglutition study is performed utilizing thin liquid barium, honey and nectar thick liqui d barium, barium thick applesauce, and barium coated cracker. COMPARISON: None. Total fluoroscopy time: 2 minutes 7 seconds. Total images: None. Real-time fluoroscopy support was provided to speech pathology. DOSE AREA PRODUCT (DAP) UGY*M,MGY*CM: 136.15 FINDINGS: Swallow initiation was mildly delayed with bolus free spilling to the level of the vallecula. The oral and pharyngeal phases show satisfactory initiation and propagation with all modalities teste d. Normal mastication is seen with solid modalities tested. There is silent aspiration with thin li quids via a straw. No aspiration of thin liquids by cup. No other penetration or aspiration seen with any modality tested. No significant pharyngeal residue was appreciated. IMPRESSION: Silent aspiration of thin liquids only via a straw. Delayed swallow. Please refer to speech therapist notes for further details if necessary.
== END | disposition home or self-care (01) ==
LOC: RADFLMAIN 11:21
PROVIDERS: ATTEND Otolaryngology
DX: G20 Parkinson's disease (principal); R13.12 Dysphagia, oropharyngeal phase
CPT/HCPCS: 74230